=== PATIENT | female | born 1980 | race Two or more races ===

== ENCOUNTER 2018-12-23 18:20 | Emergency (ER) | payer OTHER ==
[~2018-12-23] VITALS: Ht 154.9 cm; Wt 62.0 kg
[~2018-12-23 18:20] MED LIST: PREN-55 PO
[2018-12-23] MEDS ORDERED: SODIUM CHLORIDE 0.9% 1,000 ML IV ONE (19:21)
[2018-12-23] MEDS ORDERED: ACETAMINOPHEN 325MG TABLET PO STA (19:21)
[2018-12-23 20:05] LABS: CLARITY URINE CLEAR (CLEAR); COLOR URINE YELLOW (YELLOW); KETONES URINE NEGATIVE (NEGATIVE); LEUKOCYTE ESTERASE URINE TRACE (NEGATIVE); NITRITE URINE NEGATIVE (NEGATIVE); OCCULT BLOOD URINE 1+ (NEGATIVE); PH URINE 6.5 (4.5-8.0); PROTEIN URINE NEGATIVE (NEGATIVE); SPECIFIC GRAVITY URINE 1.019 (1.005-1.030)
[2018-12-23 20:38] LABS: BASOPHILS % 0.5 % (0.0-2.0); HEMATOCRIT. 39.1 % (36.0-48.0); HEMOGLOBIN. 13.1 g/dL (12.0-16.0); LYMPHOCYTES % 8.5 % (20.0-50.0); MEAN CORPUSCULAR VOLUME 86.8 fL (81.0-99.0); MEAN PLATELET VOLUME 9.7 fl (7.4-10.4); MONOCYTES % 4.4 % (2.0-8.0); NEUTROPHILS % 86.6 % (40.0-76.0); PLATELET 237 x1000/uL (130-400); RED BLOOD CELL COUNT 4.51 mill/uL (4.2-5.4); RED CELL DISTRIBUTION WIDTH 14.5 % (11.6-14.6)
[2018-12-23 20:45] LABS: CHLORIDE 106 mEq/L (98-107)
[2018-12-23 20:57] LABS: HCG SCREEN NEGATIVE
[2018-12-23] MEDS ORDERED: ALBUTEROL (0.083%) 2.5MG/3ML NEB HHN STA (21:42)
[2018-12-23 22:56] VITALS: BP 146/88
== END 2018-12-23 22:58 | disposition home or self-care (01) ==
LOC: ER 18:20
DX: B34.9 Viral infection, unspecified (principal); Z79.899 Other long term (current) drug therapy
CPT/HCPCS: 36415; 71045; 80053; 81003; 83605; 84145; 84484; 84703; 85025; 85610; 87040; 87086; 87804; 93005; 94640; 99284; J7030; J7611; Z7610

== ENCOUNTER → 2020-05-24 | Emergency (ER) | payer MEDICAID, OTHER | LOC: ER 10:58 | DX: Z53.21 Procedure and treatment not carried out due to patient leaving prior to being seen by health care provider (principal) ==